=== PATIENT | female | born 1965 | race Caucasian/White ===

== ENCOUNTER 2024-09-02 10:10 | Emergency (ER) | payer OTHER, SELFPAY ==
[2024-09-02 10:15] VITALS: BP 141/88
--- NOTE | 2024-09-02 10:35 | ED.GENMED ---
History of Present Illness
General
Chief Complaint: Flank Pain
Time Seen by Provider: 09/02/24 10:21
History of Present Illness
History of Present Illness:
59-year-old female referred to the ER from urgent care for further evaluation of left-sided flank pain which has been present intermittently since she fell on August 15. Patient falls frequently due to her prior history of traumatic brain injury. She
states that the fall on the caused her to fall forward landing mainly on her left knee. She believes that she struck a small plastic crate on the way down. No head strike. No loss of consciousness. is present at bedside and reports
that patient has been acting as per her usual self. She is not on any blood thinners. She had a subsequent fall a few days ago when getting out of the pool and bruised her left hip. She states that the pain in her left flank seems to be provoked
with deep breathing. She was feeling short of breath for 24 hours or so after the fall initially but the pain was getting better. Pain is worsened with twisting movements and deep breathing. She has been occasionally using Tylenol and ibuprofen
for discomfort. At rest pain is a 3 out of 10, with movement it is an 8 out of 10. No cough or cold symptoms. She has been eating and drinking without difficulty. No blood seen in her urine, no urinary difficulty. Patient had a urinalysis
performed in urgent care today which was negative for blood. Patient is also concerned that she may have a kidney stone, though she has no prior history of them. She reports a mild feeling of abdominal bloating, no change in bowel habits
Past History
Past History
ED Past Medical History: Other (TBI)
ED Past Surgical History: Brain and
Social History
Tobacco: Non-smoker
Living: with family
Review of Systems
Review of Systems
Allergies reviewed?: Yes
Phy Exam
Physical Exam
Physical Exam:
Vital signs reviewed, normal, patient is awake, alert, appears in no acute distress, mild dysarthria, head is normocephalic atraumatic, moving herself easily around the room with mild spastic movements, heart regular rate and rhythm not murmurs or
ectopy, lungs are clear to auscultation without wheezes rales or rhonchi, pain is reproducible on palpation of left lower lateral rib margin, no crepitus, no overlying ecchymosis, no abnormal chest wall excursion, no midline palpation of thoracic or
lumbar spine, abdomen is soft without guarding or rebound, patient reports mild feeling of pressure on palpation of left abdomen, extremities without edema, GCS is 15
Course
Orders/Labs/Results
Orders:
Orders
09/02/24 10:32
CR Ribs-left 3 Vw W/pa Chest Urgent
Comment:
Reason For Exam: trauma (fall 2 weeks ago, lower rib pain)
09/02/24 10:33
Lidocaine [Lidocaine 4% Patch] 1 patch TOPICAL ONCE ONE
Apply Lidocaine patch(s) to:: L mid back/lower ribs
Vital Signs
Initial and Last Documented VS:
Initial Vital Signs
Temp Pulse Resp BP Pulse Ox
97.8 F 77 16 141/88 99
09/02/24 10:15 09/02/24 10:15 09/02/24 10:15 09/02/24 10:15 09/02/24 10:15
Last Documented Vital Signs
Temp Pulse Resp BP Pulse Ox
97.8 F 78 16 138/77 99
09/02/24 10:15 09/02/24 12:35 09/02/24 12:35 09/02/24 12:35 09/02/24 12:35
MDM/Problems Addressed
Differential Diagnosis Includes:
Differential diagnosis to consider but not limited to rib fracture, rib contusion, pulmonary contusion, pleural effusion, muscle spasm, thoracic spine compression fracture along with other etiologies considered
Chronic conditions affecting care:
Prior traumatic brain injury, frequent falls
*Radiology
Radiology exam reviewed: preliminary read by ED provider (I independently viewed and interpreted rib x-ray showing no fracture, no malalignment, no pulmonary infiltrates. I reviewed radiology interpretation which is in agreement)
*Pulse Oximetry
SaO2: 99
Oxygen Mode of Delivery: Room air
Patient hypoxic: no
*Critical Care Note
Total Time (30-74mins, 75-104mins- exclusive of procedures): Not Applicable
Update Note
Update Note:
Patient resting in no acute distress throughout time in the emergency department. I discussed with patient and present at bedside very reassuring x-rays-no evidence for displaced rib fracture, pulmonary contusion or pleural effusion.
Patient has been eating and drinking. Injury occurred more than 2 weeks ago and she has normal vital signs. I discussed with them very reassuring exam, most likely etiology symptoms related to muscle spasm/strain from healing contusion. I advised
patient to use high-dose NSAIDs for the next 3 days along with alternating between heat and ice. They expressed understanding of discharge plan along with strict return precautions and had no questions prior to leaving the department.
ED Attending Note
-
Portions of this chart may have been created with voice recognition software.� Occasional wrong word or��sound alike� substitutions may have occurred due to the inherent limitations of voice recognition software.
Discharge Plan
Departure
Patient Disposition: Home (Routine Discharge)
Date of Disposition: 09/02/24
Time of Disposition: 12:16
Patient with high blood pressure during this ER visit?: No
Discharge Problem:
Acute left flank pain
Referrals:
Enrique Mayers MD [Family Provider, Internal Medicine]
Activity Restrictions/Additional Instructions:
Use ibuprofen as available [id number] mg 3 times daily for the next 3 days then as needed for discomfort. You may also use Tylenol for pain uncontrolled with ibuprofen. Please also alternate between heat and ice for 20 minutes at a time
throughout the day to help with discomfort. Please take 10 deep breaths every hour to help with stretching and discomfort. Please follow-up with your primary care physician for reevaluation and further care
Interventions
Interventions:
*Risk Screen - Suicide Last Done: 09/02/24 10:15
*General Assessment Last Done: 09/02/24 12:35
*Neglect/Abuse Screening Last Done: 09/02/24 10:15
*ED- Fall Risk Assessment Last Done: 09/02/24 10:15
*ED COVID-19 Vaccine History Last Done: 09/02/24 10:21
*Nursing Disposition Last Done: 09/02/24 12:35
FF-Xapnuu-Dfqixczrto Assessment Last Done: 09/02/24 10:21
ED-Female Genitourinary Assessment Last Done: 09/02/24 10:21
Discharge Date and Time
Discharge Date/Time: 09/02/24 12:45
Print Language: [id number]
[2024-09-02] MEDS: LIDOCAINE 4% PATCH 1 PATCH TOPICAL (10:41)
[2024-09-02 12:35] VITALS: BP 138/77
== END 2024-09-02 12:45 | disposition home or self-care (01) ==
LOC: EMR 10:10
PROVIDERS: EMERGENCY PHYSICIAN Emergency Medicine; FAMILY PHYSICIAN Internal Medicine
DX: R10.9 Unspecified abdominal pain (principal); W19.XXXA Unspecified fall, initial encounter; R29.6 Repeated falls; Z87.820 Personal history of traumatic brain injury
CPT/HCPCS: 99283; 71101